=== PATIENT | male | born 1970 | race Hispanic/Latino ===

== ENCOUNTER 2024-12-11 21:03 | Emergency (ER) | payer OTHER, SELFPAY ==
[2024-12-11 21:17] VITALS: BP 148/79
[2024-12-11 22:00] LABS: % Basophils 0.7 % (0-2); % Eosinophils 0.7 % (0-6); % Immature Granulocytes 0.4 % (0-0.5); % Lymphocytes 20.5 % (20.5-51.1); % Monocytes 8.9 % (1.7-9.3); % Neutrophils 68.8 % (42.2-75.2); Absolute Lymphocytes 1.2 10^3/uL (1.2-3.4); Absolute Monocytes 0.5 10^3/uL (0.1-0.6); Absolute Neutrophils 3.9 10^3/uL (1.4-6.5); Hematocrit 40.8 % (39.0-52.0); Hemoglobin 14.1 g/dL (13.0-18.0); Mean Corp Hgb Conc. 34.6 g/dL (33.0-37.0); Mean Corpuscular Hgb 29.9 pg (27.0-31.0); Mean Corpuscular Volume 86.6 fL (80.0-94.0); Mean Platelet Volume 10.6 fL (7.4-10.4); Nucleated Red Blood Cells % 0 % (-); Platelet Count 173 10^3/uL (130-400); Red Blood Cell Count 4.71 10^6/uL (4.70-6.10); Red Cell Dist. Width 11.6 % (11.5-14.5); White Blood Cell Count 5.6 10^3/uL (4.8-10.8)
[2024-12-11 22:11] LABS: Urine Albumin Negative (Neg - Trace); Urine Bilirubin Negative (Negative); Urine Character Clear (Clear); Urine Color Yellow; Urine Glucose 4+ (Negative); Urine Ketone Negative (Negative); Urine Leukocyte Negative (Negative); Urine Nitrite Negative (Negative); Urine Occult Blood 1+ (Negative); Urine Urobilinogen Negative (Neg - 1+)
[2024-12-11 22:14] LABS: COVID-19 Antigen Negative (Negative)
[2024-12-11 22:16] LABS: Lactic Acid 1.4 mmol/L (0.7-2.0)
[2024-12-11 22:20] LABS: ALT (SGPT) 44 U/L (0-50); AST (SGOT) 43 U/L (17-59); Albumin 4.2 g/dl (3.5-5.0); Alkaline Phosphatase 123 U/L (38-126); Blood Urea Nitrogen 9 mg/dl (9-20); Calcium 8.8 mg/dl (8.4-10.2); Carbon Dioxide 25 mmol/L (22-30); Chloride 97 mmol/L (98-107); Glucose 489 mg/dl (70-99); Potassium 4.6 mmol/L (3.5-5.1); Sodium 129 mmol/L (135-145); Total Bilirubin 0.9 mg/dl (0.2-1.3); Total Protein 8.2 g/dl (6.3-8.2); eGFR > 60.00
[2024-12-11 22:27] LABS: Urine Red Blood Cell 0-2 /HPF (0-2); Urine White Cell None Seen /HPF (0-5)
[2024-12-11 22:27] LABS: Troponin I < 0.012 ng/ml
[2024-12-11] MEDS: TYLENOL 1000 MG PO (23:04)
[2024-12-11] MEDS: NSS 1000 IV (23:06)
[2024-12-11 23:10] VITALS: BMI 28.0
[2024-12-11 23:13] VITALS: BP 136/79
--- NOTE | 2024-12-11 23:21 | ED.GENMED ---
History of Present Illness
General
Chief Complaint: Fever
Source: patient
Time Seen by Provider: 12/11/24 22:44
History of Present Illness
History of Present Illness:
Note:
CHIEF COMPLAINT(S)
Fever, headache, and myalgia.
HISTORY OF PRESENT ILLNESS
The patient is a 53-year-old male with a past medical history of diabetes presenting with fever, headache, and body aches x 2 days. He has not taken ibuprofen or acetaminophen but took Nyquil yesterday. The patient reports a minor cough but
denies nausea, vomiting, dysuria, abdominal pain, chest pain, shortness of breath, neck pain or stiffness or rashes. He notes no recent travel or antibiotic use, and no other individuals at home are ill. He has been compliant with his diabetes
medication daily.
CHRONIC MEDICAL CONDITIONS SIGNIFICANTLY AFFECTING CARE
Chronic conditions affecting care: Diabetes.
REVIEW OF SYSTEMS
- General: Fever, headache, body aches.
- Respiratory: Minor cough.
- Gastrointestinal: Denies nausea, vomiting.
- Genitourinary: No dysuria.
- Integumentary: Denies rashes.
Past History
Past History
ED Past Medical History: Asthma, NIDDM and Other (Diverticulitis)
ED Past Surgical History: None
Social History
Tobacco: Non-smoker
Alcohol: None
Drug: None
Personal:
Living: with family
Employment: Other (Recently lost his job in past few weeks)
Family History
Family History: Other (Nonsignificant)
Review of Systems
Review of Systems
All Other Systems: ROS reviewed and negative except as documented in HPI and ROS
Phy Exam
Physical Exam
Physical Exam:
GENERAL: Alert , in no apparent distress
EYE: conjunctiva clear
NECK: Supple, no significant adenopathy. No meningismus
ENT: o/p clr, mmm. TMs clear bilateral
CARDIAC: Regular rate and rhythm
LUNGS: Clear breath sounds bilaterally, no acute respiratory distress, no wheezes/rales/rhonchi
ABDOMEN: Soft, nontender, nondistended
NEUROLOGICAL: Alert and oriented
SKIN: Hot to the touch and dry, skin intact. No rashes
MUSCULOSKELETAL: well perfused.
PSYCH: Normal and appropriate interaction.
Scores
Heart Failure Risk
Heart Failure Risk Score: Not Applicable
Heart Score for Chest Pain Patients
STEMI patient?: Not applicable
Withdrawal Assessment of Alcohol
Withdrawal Assessment Completed?: Not applicable
Sepsis
Sepsis Screening
Sepsis Assessment: Sepsis Ruled Out
Sepsis Screen
Sepsis Screen: Sepsis Ruled Out
Date: 12/12/24
Time: 00:41
Course
Orders/Labs/Results
Orders:
Orders
12/11/24 21:20
Electrocardiogram (*1) Urgent
Reason for Study: Other
Other Reason for Exam: Possible Sepsis
Electrocardiogram (*1) Urgent
Reason for Study: Chest Pain
EKG- Treatment ONCE
IV Insert/Care/Rem.- Treatment PRN
CR Chest - 2 Views Urgent
Comment:
Reason For Exam: suspected infection
O2 Therapy [RESP] Urgent
Titrate/Wean O2 to maintain O2 sat greater than (%): 93
Special Instructions: TO MAINTAIN CONTINUOUS O2 SATS > OR = 93%
Pulse Ox/cont/shift [RESP] Urgent
Quantity: 1
Special Instructions: CONTINUOUS
12/11/24 21:46
Comprehensive Metabolic Panel Urgent
Troponin I Urgent
Blood Culture Q20M
CLEM Source: Blood/Venous
Specimen Description:
Comment: Urgent from separate sites. If patient screens positive for possible sepsis
12/11/24 21:47
COVID-19 Antigen Urgent
Source: Nasal Swab
Complete Blood Count/With Diff Urgent
Lactic Acid Q4H
Comment: ON ICE, CANCEL 2ND ORDER IF FIRST LACTIC ACID LEVEL <2
Urinalysis Reflex To Culture Urgent
Date Specimen was Collected: 12/11/24
Time Specimen was Collected: 21:20
Urine Microscopic Reflex Cult Urgent
Influenza A+B Rapid Molecular Urgent
CLEM Source: Nasal Swab
Specimen Description:
Date Specimen was Collected: 12/11/24
Time Specimen was Collected: 21:20
12/11/24 21:50
Blood Culture Q20M
CLEM Source: Blood/Venous
Specimen Description:
Comment: Urgent from separate sites. If patient screens positive for possible sepsis
12/11/24 22:50
0.9% Sodium Chloride 1000 ml [Nss] 1,000 ml IV BOLUS
Acetaminophen [Tylenol] 1,000 mg PO NOW STA
12/12/24 00:00
Bedside Glucose- Treatment ONCE
Abnormal Lab Results
12/11/24 12/11/24 12/12/24
21:46 21:47 00:15
MPV 10.6 H fL
(7.4-10.4)
Sodium 129 L mmol/L
(135-145)
Chloride 97 L mmol/L
(98-107)
Creatinine 0.6 L mg/dL
(0.7-1.3)
Glucose 489 H* mg/dl
(70-99)
Ur Occult Blood Reflex 1+ A
(Negative)
Urine Glucose 4+ A
(Negative)
POC Glucose 342 H mg/dl
(70-99)
12/11/24 21:47
12/11/24 21:46
Vital Signs
Initial and Last Documented VS:
Initial Vital Signs
Temp Pulse Resp BP Pulse Ox
102.1 F H 109 16 148/79 95
12/11/24 21:17 12/11/24 21:17 12/11/24 21:17 12/11/24 21:17 12/11/24 21:17
Last Documented Vital Signs
Temp Pulse Resp BP Pulse Ox
99.1 F 92 23 127/81 94
12/12/24 00:18 12/12/24 00:15 12/12/24 00:15 12/12/24 00:00 12/12/24 00:15
MDM/Problems Addressed
Differential Diagnosis Includes:
The Differential Diagnosis includes, in no particular order and is not limited to:
1. Viral infection
2. Bacterial infection
3. Influenza
4. COVID-19
5. Urinary tract infection
6. Sinusitis
7. Pneumonia
8. Lyme disease
9. Drug-induced fever
MDM/Problems Addressed:
53-year-old male presented the ER for evaluation of fevers and generalized malaise/body aches for the last 2 days. Arrival here revealed a temperature of 102.1. No Motrin or Tylenol taken today. Labs initiated on arrival shows no leukocytosis.
Patient does have a glucose of 489 which I suspect is elevated secondary to patient's known infection. There is also pseudohyponatremia, corrected sodium of 138. CXR shows no infiltrates. Awaiting UA. Will treat with 1L NSS and tylenol. Repeat
glucose pending
Chronic conditions affecting care: DM
Acute Exacerbation and/or Progression of Chronic Illness: DM
*Radiology
Radiology exam reviewed: preliminary read by ED provider (normal CXR)
*Pulse Oximetry
SaO2: 96
Oxygen Mode of Delivery: Room air
Patient hypoxic: no
*Critical Care Note
Total Time (30-74mins, 75-104mins- exclusive of procedures): Not Applicable
Patient Management
Escalation/DeEscalation of care consider admission/obs:
On reassessment patient's fever downtrended to 99.1 and glucose much improved following IV fluids. Patient reports that his symptoms seem to be improved although still notes a dry cough. At this time I am most suspicious for viral etiology as
cause for patient's presenting symptoms. Recommended continued Motrin/Tylenol at home. Patient aware of return precautions to the ER, stable for discharge home.
ED Attending Note
-
Portions of this chart may have been created with voice recognition software.� Occasional wrong word or��sound alike� substitutions may have occurred due to the inherent limitations of voice recognition software.
Discharge Plan
Departure
Patient Disposition: Home (Routine Discharge)
Date of Disposition: 12/12/24
Time of Disposition: 00:20
Patient with high blood pressure during this ER visit?: Yes
Discharge Problem:
Fever, Cough, Diabetes mellitus with hyperglycemia
Instructions: Fever, Adult (DC)
Prescriptions:
No Action
aspirin 81 mg Tablet,Delayed Release (Dr/Ec)
81 mg PO QPM
metformin 1,000 mg Tablet
1,000 mg PO BID
ibuprofen [Advil] 200 mg Tablet
400 mg PO DAILYPRN PRN (Reason: mild pain)
Referrals:
UNKNOWN - PT DOES,NOT KNOW [Family Provider]
Stand Alone Forms: Return to Work
Interventions
Interventions:
*Risk Screen - Suicide Last Done: 12/11/24 21:17
*General Assessment Last Done: 12/11/24 23:10
*Neglect/Abuse Screening Last Done: 12/11/24 21:17
*ED- Fall Risk Assessment Last Done: 12/11/24 23:10
*ED COVID-19 Vaccine History Last Done: 12/11/24 23:10
ED- Neurological Assessment Last Done: 12/11/24 23:10
ED-Skin Assessment Last Done: 12/11/24 23:10
Discharge Date and Time
Print Language: EGYPTIAN
--- NOTE | 2024-12-11 23:23 | PHANOTE ---
12/11/2024, per pt., they are taking Metformin 1000 mg BID but this med. is not included in their pharmacy records; [facility] records are outdated; was not able to confirm this med. with another source.
[2024-12-12] VITALS: BP 127/81
[2024-12-12 00:17] LABS: Glucose - Point of Care 342 mg/dl (70-99)
== END 2024-12-12 00:44 | disposition home or self-care (01) ==
LOC: EMR 21:03
PROVIDERS: Student in an Organized Health Care Education/Training Program; EMERGENCY PHYSICIAN Emergency Medicine
DX: R50.9 Fever, unspecified (principal); R05.9 Cough, unspecified; E11.65 Type 2 diabetes mellitus with hyperglycemia; J45.909 Unspecified asthma, uncomplicated
CPT/HCPCS: 99283; 96360; 71046; 80053; 81003; 81015; 82962; 83605; 84484; 85025; 87040; 87502; 87811; 93005

== ENCOUNTER → 2024-12-16 12:39 | Emergency (ER) | payer OTHER, SELFPAY ==
[2024-12-16 12:47] VITALS: BP 128/76
[2024-12-16 13:17] LABS: % Basophils 0.6 % (0-2); % Eosinophils 2.7 % (0-6); % Immature Granulocytes 0.7 % (0-0.5); % Lymphocytes 21.9 % (20.5-51.1); % Monocytes 7.2 % (1.7-9.3); % Neutrophils 66.9 % (42.2-75.2); Absolute Basophils 0.1 10^3/uL (0-0.2); Absolute Eosinophils 0.2 10^3/uL (0-0.7); Absolute Immature Granulocytes 0.1 10^3/uL (0-0.05); Absolute Lymphocytes 1.8 10^3/uL (1.2-3.4); Absolute Monocytes 0.6 10^3/uL (0.1-0.6); Absolute Neutrophils 5.6 10^3/uL (1.4-6.5); Hematocrit 41.9 % (39.0-52.0); Hemoglobin 13.9 g/dL (13.0-18.0); Mean Corp Hgb Conc. 33.2 g/dL (33.0-37.0); Mean Corpuscular Hgb 29.6 pg (27.0-31.0); Mean Corpuscular Volume 89.3 fL (80.0-94.0); Mean Platelet Volume 10.7 fL (7.4-10.4); Nucleated Red Blood Cells % 0 % (-); Platelet Count 253 10^3/uL (130-400); Red Blood Cell Count 4.69 10^6/uL (4.70-6.10); Red Cell Dist. Width 11.9 % (11.5-14.5); White Blood Cell Count 8.4 10^3/uL (4.8-10.8)
[2024-12-16 13:22] LABS: Lactic Acid 1.7 mmol/L (0.7-2.0); Urine Albumin Negative (Neg - Trace); Urine Bilirubin Negative (Negative); Urine Character Clear (Clear); Urine Color Yellow; Urine Glucose 4+ (Negative); Urine Ketone Negative (Negative); Urine Leukocyte Negative (Negative); Urine Nitrite Negative (Negative); Urine Occult Blood Negative (Negative); Urine Specific Gravity 1.015 (<1.030); Urine Urobilinogen Negative (Neg - 1+)
[2024-12-16 13:29] LABS: ALT (SGPT) 164 U/L (0-50); AST (SGOT) 61 U/L (17-59); Albumin 4.4 g/dl (3.5-5.0); Alkaline Phosphatase 284 U/L (38-126); Blood Urea Nitrogen 13 mg/dl (9-20); Calcium 9.5 mg/dl (8.4-10.2); Carbon Dioxide 27 mmol/L (22-30); Chloride 99 mmol/L (98-107); Glucose 373 mg/dl (70-99); Sodium 136 mmol/L (135-145); Total Bilirubin 1.2 mg/dl (0.2-1.3); Total Protein 8.8 g/dl (6.3-8.2); eGFR > 60.00
[2024-12-16 14:35] VITALS: BP 116/79
[2024-12-16 16:43] VITALS: BP 126/87
[2024-12-16 17:00] VITALS: BP 114/83; BMI 23.7
--- NOTE | 2024-12-16 17:25 | ED.GENMED ---
History of Present Illness
General
Chief Complaint: Blood Pressure Problem
Source: patient
Exam Limitations: none
Time Seen by Provider: 12/16/24 17:23
Nursing documentation reviewed up to this point in time: agreed with
History of Present Illness
History of Present Illness:
TIME OF INITIAL EVALUATION
- 17:20
REVIEW OF OLD RECORDS
- ED visit from he was evaluated for fevers and bodyaches-workup significant for hyperglycemia which was treated with IV fluids, negative chest x-ray and patient was discharged back with suspected viral syndrome; patient had negative blood
cultures on 12/11/2024
CHIEF COMPLAINT(S)
Headache, fatigue.
HISTORY OF PRESENT ILLNESS
The patient is a 53-year-old male with a past medical history of diabetes who presents to the emergency department with a chief complaint of a headache and fatigue. The symptoms began several days ago, and the patient was evaluated in the emergency
department previously and at an urgent care this morning. The headache and fatigue have persisted.
The patient denies chest pain, shortness of breath, abdominal pain, vomiting, sore throat, or significant cough, though he reports a slight cough which is actually improving. Patient denies any dysuria.
His fevers at this point seem to have resolved. Patient was seen in urgent care today due to headache and apparently had low blood pressure readings and was referred to the emergency department.
He denies any known sick contacts.
Past History
Past History
ED Past Medical History: Asthma, NIDDM and Other (Diverticulitis)
ED Past Surgical History: None
Social History
Tobacco: Non-smoker
Alcohol: None
Drug: None
Personal:
Living: with family
Employment: Other (Recently lost his job in past few weeks)
Family History
Family History: Other (Nonsignificant)
Review of Systems
Review of Systems
Allergies reviewed?: Yes
All Other Systems: ROS reviewed and negative except as documented in HPI and ROS
Phy Exam
Physical Exam
Physical Exam:
- Vitals: Vital signs stable. Afebrile
- General: Well appearing in no distress
- HEENT: Moist oral mucosa. No tonsillar edema or exudates. Uvula midline. Protecting airway. No meningismus
- Cardiovascular: No murmurs, normal heart rate, regular rhythm, No chest wall tenderness
- Pulmonary: No respiratory distress, breath sounds are clear and equal
- Abdomen: Soft with no peritoneal signs, no tenderness. No palpable organomegaly
- Neurologic: Excellent strength all extremities, no coordination deficits
- Psychiatric: Appropriate mental status, normal insight and judgement
- Extremities: Nontender, no edema, moves all extremities equally
- Skin: No rash, no lesions
Course
Orders/Labs/Results
Orders:
Orders
12/16/24 12:50
Electrocardiogram (*1) Urgent
Reason for Study: Other
Other Reason for Exam: Possible Sepsis
12/16/24 12:51
EKG- Treatment ONCE
12/16/24 12:56
Complete Blood Count/With Diff Urgent
Comprehensive Metabolic Panel Urgent
Lactic Acid Stat
Lipase Urgent
Comment: ADD ON
Urinalysis Reflex To Culture Urgent
Date Specimen was Collected: 12/16/24
Time Specimen was Collected: 12:51
Blood Culture Stat
CLEM Source: Blood/Venous
Specimen Description:
12/16/24 17:50
Add On- LAB Urgent
Tests Added?: monospot
0.9% Sodium Chloride 1000 ml [Nss] 1,000 ml IV BOLUS
Acetaminophen [Tylenol] 650 mg PO NOW STA
12/16/24 18:05
Hepatitis A IgM Antibody Urgent
Hepatitis B Core Ab, IgM Urgent
Hepatitis B Surface Antibody Urgent
Hepatitis B Surface Antigen Urgent
Hepatitis C Antibody Urgent
Lyme Progressive Urgent
Monotest Urgent
Comment: ADD ON
12/16/24 18:59
Add On- LAB Urgent
Tests Added?: lipase
12/16/24 20:15
METFORMIN HCl [Glucophage] 1,000 mg PO NOW STA
Abnormal Lab Results
12/16/24 12/16/24 12/16/24
12:56 18:05 19:43
RBC 4.69 L 10^6/uL
(4.70-6.10)
MPV 10.7 H fL
(7.4-10.4)
Abs Immat Gran (auto) 0.1 H 10^3/uL
(0-0.05)
Immature Gran % 0.7 H %
(0-0.5)
Creatinine 0.6 L mg/dL
(0.7-1.3)
Glucose 373 H mg/dl
(70-99)
AST 61 H U/L
(17-59)
ALT 164 H U/L
(0-50)
Alkaline Phosphatase 284 H U/L
(38-126)
Total Protein 8.8 H g/dl
(6.3-8.2)
Urine Glucose 4+ A
(Negative)
Monoscreen Positive A
(Negative)
POC Glucose 206 H mg/dl
(70-99)
12/16/24 12:56
12/16/24 12:56
Vital Signs
Initial and Last Documented VS:
Initial Vital Signs
Temp Pulse Resp BP Pulse Ox
97.8 F 79 20 128/76 96
12/16/24 12:47 12/16/24 12:47 12/16/24 12:47 12/16/24 12:47 12/16/24 12:47
Last Documented Vital Signs
Temp Pulse Resp BP Pulse Ox
97.8 F 76 21 116/81 96
12/16/24 12:47 12/16/24 18:15 12/16/24 18:15 12/16/24 18:00 12/16/24 18:15
MDM/Problems Addressed
Differential Diagnosis Includes:
1. Viral infection
2. Diabetes mellitus-related complications
3. Mononucleosis
4. Hepatitis
5. Atypical pneumonia
6. Dehydration
7. Sinusitis
8. Migraine
9. Medication side effect
MDM/Problems Addressed:
The patient, a 53-year-old male with a history of diabetes, presented to the emergency department with persistent headache and fatigue. Evaluation revealed elevated blood sugar levels and elevated liver function tests. A viral cause was suspected,
and testing confirmed the presence of mononucleosis. The symptoms, including headache, fatigue, and previously suspected fever, were attributed to this viral infection. He was given tylneol and IVF in the ED with decrease in blood sugar. Ultimately
symptoms consistent with viral acute mono infection, including elevation in LFTS. He has not been hypotensive lenny. He is nontoxic appearing and stable for discharge home with supportive care and return precautions. The patient was advised to rest,
maintain hydration, and use acetaminophen (Tylenol) or ibuprofen (Motrin) as needed for body aches and fever. Follow-up with primary care to reassess liver function tests.
Prior to discharge patient expressed that he has been out of his metformin prescription and is planning to call his PCP tomorrow for appt. Medication noncompliance very likely also contributing to hyperglycemia. Patient given his dose in ED and rx
sent for one month supply pending f/u with PCP.
Chronic conditions affecting care:
Diabetes
Acute Exacerbation and/or Progression of Chronic Illness:
Acute hyperglycemia
*Pulse Oximetry
SaO2: 100
Oxygen Mode of Delivery: Room air
Patient hypoxic: no
*EKG
Interpreted by ED Provider?: Yes
EKG Intrepretation Date: 12/16/24
Interpretation: abnormal
Comparison EKG: changes noted
Heart Rate: 75
Rate: normal
Rhythm: sinus and PAC's
Interval: normal QT interval
QRS Pattern: right bundle branch block
*Shopper Marketing Manager Interpretation
Rate: Shopper Marketing Manager- N/A
*Critical Care Note
Total Time (30-74mins, 75-104mins- exclusive of procedures): Not Applicable
ED Attending Note
-
Portions of this chart may have been created with voice recognition software.� Occasional wrong word or��sound alike� substitutions may have occurred due to the inherent limitations of voice recognition software.
Discharge Plan
Departure
Patient Disposition: Home (Routine Discharge)
Date of Disposition: 12/16/24
Time of Disposition: 19:59
Patient with high blood pressure during this ER visit?: No
Condition: Good
Discharge Problem:
Mononucleosis, Transaminitis
Instructions: Mononucleosis
Prescriptions:
New
metformin 1,000 mg tablet
1,000 mg PO BID 30 Days Qty: 60 0RF
No Action
aspirin 81 mg Tablet,Delayed Release (Dr/Ec)
81 mg PO QPM
metformin 1,000 mg Tablet
1,000 mg PO BID
ibuprofen [Advil] 200 mg Tablet
400 mg PO DAILYPRN PRN (Reason: mild pain)
Referrals:
Amy Davison MD [Family Provider, Internal Medicine] - Follow up in 5-7 days
Stand Alone Forms: Return to Work
Activity Restrictions/Additional Instructions:
REGRESE A URGENCIAS SI PRESENTA FIEBRE LING, DOLOR DE RADHA O CONCHIS INTENSO, DOLOR ABDOMINAL INTENSO, COLOR AMARILLENTO EN LA PIEL O LOS OJOS, DOLOR DE [place] INTENSO O DIFICULTAD PARA RESPIRAR, EMPEORAMIENTO DE LOS S�NTOMAS ACTUALES O CUALQUIER
OTRA INQUIETUD.
- [place] se mencion�, amber signos vitales se mantuvieron estables en urgencias. Se le detect� mononucleosis (un virus). [place] funci�n hep�flores estaba elevada, probablemente secundaria a la mononucleosis. [place] nivel de az�car en juliette tambi�n estaba
elevado, aunque descendi� a alrededor de 200 despu�s de la administraci�n de l�quidos intravenosos.
- Es importante que descanse indu y se mantenga indu hidratado en casa. [place] Motrin seg�n sea necesario para el dolor de radha o corporal.
- [place] se mencion�, es importante realizar un seguimiento con miller m�dico de cabecera para repetir los an�lisis de laboratorio y asegurar que miller funci�n hep�flores se normalice. Por favor, controle tambi�n amber niveles de az�car en juliette.
Vigile atentamente amber s�ntomas y acuda a urgencias ante cualquier empeoramiento pepito, nuevos s�ntomas o cualquier otra inquietud.
Interventions
Interventions:
*Risk Screen - Suicide Last Done: 12/16/24 12:47
*General Assessment Last Done: 12/16/24 17:00
*Neglect/Abuse Screening Last Done: 12/16/24 12:47
*ED- Fall Risk Assessment Last Done: 12/16/24 17:00
*ED COVID-19 Vaccine History Last Done: 12/16/24 17:00
ED- Cardiac Assessment Last Done: 12/16/24 17:00
ED- Neurological Assessment Last Done: 12/16/24 17:00
ED- Pulmonary Assessment Last Done: 12/16/24 17:00
Discharge Date and Time
Print Language: PERSIAN
[2024-12-16 18:00] VITALS: BP 116/81
[2024-12-16] MEDS: TYLENOL 650 MG PO (18:04)
[2024-12-16] MEDS: NSS 1000 IV (18:08)
[2024-12-16 19:07] LABS: Monotest Positive (Negative)
[2024-12-16 19:44] LABS: Lipase 156 U/L (23-300)
[2024-12-16 19:45] LABS: Glucose - Point of Care 206 mg/dl (70-99)
[2024-12-16] MEDS: GLUCOPHAGE 1000 MG PO (20:20)
[2024-12-17 13:28] LABS: Lyme Antibody Screen, EIA Presump. Positive (Negative)
[2024-12-17 18:39] LABS: Hepatitis B Surface Antigen Negative (Negative)
[2024-12-17 18:44] LABS: Hepatitis A IgM Antibody Negative (Negative); Hepatitis B Core Ab, IgM Negative (Negative)
[2024-12-17 18:56] LABS: Hepatitis B Surface Antibody Positive; Hepatitis C Antibody Negative (Negative)
== END | disposition home or self-care (01) ==
LOC: EMR 12:39
PROVIDERS: Physician Assistant; EMERGENCY PHYSICIAN Emergency Medicine; FAMILY PHYSICIAN Internal Medicine
DX: B27.90 Infectious mononucleosis, unspecified without complication (principal); R74.01 Elevation of levels of liver transaminase levels; J45.909 Unspecified asthma, uncomplicated; E11.65 Type 2 diabetes mellitus with hyperglycemia; Z91.148 Patient's other noncompliance with medication regimen for other reason
CPT/HCPCS: 99283; 96360; 80053; 81003; 82962; 83605; 83690; 85025; 86308; 86617; 86618; 86705; 86706; 86709; 86803; 87040; 87340; 93005